=== PATIENT | male | born 1970 | race Two or more races ===

== ENCOUNTER 2024-01-07 17:24 | Emergency (ER) | payer MEDICAID ==
[~2024-01-07] VITALS: Ht 160 cm; Wt 59.7 kg
[2024-01-07 17:24] VITALS: BP 140/87; PULSE 120; RESP 18; TEMP 99.8; O2SAT 97
[2024-01-07] MEDS: HYDROcodone-ACET 5/325MG TAB PO ONE (20:08)
[2024-01-07] MEDS: IBUPROFEN 800 MG TAB PO ONE (20:09)
== END 2024-01-07 20:23 | disposition home or self-care (01) ==
LOC: ER 17:24
DX: S62.522A Displaced fracture of distal phalanx of left thumb, initial encounter for closed fracture (principal); W22.8XXA Striking against or struck by other objects, initial encounter; Y93.39 Activity, other involving climbing, rappelling and jumping off; Y92.89 Other specified places as the place of occurrence of the external cause; Y99.8 Other external cause status
CPT/HCPCS: 29130; 73130